=== PATIENT | female | born 1985 | race Caucasian/White ===

== ENCOUNTER 2018-05-04 06:48 | Emergency (ER) | payer MEDICAID ==
[~2018-05-04] VITALS: Ht 157.5 cm; Wt 71.7 kg
[2018-05-04 06:52] VITALS: BP 139/81
[2018-05-04] MEDS ORDERED: LEVO0.155 PO (06:58)
[2018-05-04 08:31] VITALS: BP 110/75
== END 2018-05-04 08:31 | disposition home or self-care (01) ==
LOC: MED 06:48
DX: R10.32 Left lower quadrant pain (principal); R11.0 Nausea; R03.0 Elevated blood-pressure reading, without diagnosis of hypertension; E07.9 Disorder of thyroid, unspecified
CPT/HCPCS: 76830; 81002; 81025; 93976; 99284; Q0092